=== PATIENT | female | born 1980 | race Caucasian/White ===

== ENCOUNTER 2025-06-05 13:15 | Outpatient (AMB) | payer MEDICARE, MEDICAID, SELFPAY ==
--- OUTSIDE RECORDS SUMMARY | 2025-06-04 14:30 | XMS_ITS | Encounter Summary ---
Author Organization [facility] Address [address] [facility] [address] [place] [address] Phone Care Team Providers Care Interior Horticulturist Name Role Phone Nancy Mina MD Unavailable [phone] Anil Polanco MD Unavailable [phone] Andrea Bradley MD Unavailable [phone] Maximo Frye MD Unavailable Catherine Baxter Primary Care Provider [phone] Reason for Visit * Treatment and Therapy Plan (Routine) - Authorized Specialty Diagnoses / Procedures Referred By Sylvia abrams Referred To Contact Infusion Therapy Diagnoses IV HYDRATRATION Procedures IV HYDRATION Catherine Baxter [address] [facility], [address] [place] [address] Phone: tel: fax: mailto:lizandro [facility] [address] [place] [address] Phone: tel: fax: Referral ID Status Reason Start Date Expiration Date V isits Requested Visits Authorized [id number] Authorized 01/01/2025 01/01/2039 99 99 Encounter Details Date Type Department Care Team (Late st Contact Info) Description 06/04/2025 2:30 PM EDT Infusion [facility] [address] [place] [address] Catherine Baxter [address] [facility], [address] [place] [address] [email or web address] Major-Danlos syndrome (Primary Dx) Social History Tobacco Use Types Packs/Day Years Used Date Smoking Tobacco: Never Smokeless Tobacco: Never Alcohol Use Standard Drinks/Week Comments No 0 (1 standard drink = 0.6 oz pur e alcohol) Child or Family Care Answer Date Record ed Do you have problems with on e of the following making it difficult for you to work, study, or receive health care? No 07/05/2024 Education Answer Date Recorded Are you interested in help w ith more adult education (for example, completing high school, GED, job training, learning the Amharic language, technical skills, or developing parenting skills)? No 07/05/2024 Are you concerned about learning? Not on file 07/05/2024 No 07/05/2024 Yes 07/05/2024 Food Answer Date Recorded Within the past 6 months we worried whether our food would run out before we got money to buy more. Never True 07/05/2024 Within the past 6 months the food we bought just didn't last and we didn't have enough money to get more. Never True Residential Stability Answer Date Recor ded What is your housing situation today? I have constantine sing 07/05/2024 How many times have you move d in the past 12 months? Zero (I did not move) 07/05/2024 Paying for Meds Answer Date Recorded Do you have trouble paying for medicines? No 07/05/2024 Paying Utility Bills Answer Date Record ed Do you have trouble paying your heating or elect ricity bill? No 07/05/2024 Transportation Answer Date Recorded Has the lack of transportati on kept you from medical appointments or from getting medications? No 07/05/2024 Unemployment Answer Date Recorded Are you currently unemployed or working on a part-time or temporary basis, and looking for work? No 07/05/2024 Digital Access Answer Date Recorded No 07/05/2024 Yes 07/05/2024 Do you have reliable internet access at home? Ye sherwin 07/05/2024 Do you have a device (e.g., phone, tablet, computer) with a working camera? Yes 07/05/2024 Intimate Partner Violence Answer Date R ecorded Are you denied basic needs s uch as food, clothing, or medical care? No 03/20/2025 In the past 12 months have y ou been in a relationship with a person who hurts, threatens, or tries to control you? No 03/20/2025 Are you denied basic needs s uch as food, clothing, or medical care? No 03/20/2025 In the past 12 months have y ou been in a relationship with a person who hurts, threatens, or tries to control you? No 03/20/2025 Comments No Sex and Gender Information Value Date Recorded Sex Assigned at Female 08/22/2019 10:05 AM EDT Legal Sex Female 3:35 PM EDT Gender Identity Female 08/22/2019 10:05 AM EDT Sexual Orientation Straight 01/30/2021 5: 26 PM EDT documented as of this encounter Last Filed Vital Signs Vital Sign Reading Time Taken Comments Blood Pressure 131/83 06/04/2025 3:30 PM EDT Pulse 89 06/04/2025 3:30 PM EDT Temperature 36.6 C (97.8 F) 06/04/2025 3:30 PM EDT Respiratory Rate 20 06/04/2025 3:30 PM EDT Oxygen Saturation 97% 06/04/2025 3:30 PM EDT Inhaled Oxygen Concentration - - Weight - - Height - - Body Mass Index - - documented in this encounter Progress Notes * Katheryn Arnett RN - 06/04/2025 2:30 PM EDT Patient here for day one of this week's IV hydration on MWF schedule. Patient reports increased back pain and requested bed which is available today. Attempted to access port with patient in high alford's position. Patient flinched significantly with needle contact and gripper needle popped out and became unseated. Second attempt also unsuccessful due to most likely insufficient securing of port during access and when patient flinched needle hit metal and made a noise so immediately removed. A second nurse accessed patient in supine position without any difficulty. Immediate blood return noted. Patient tolerated LR one liter of one hour without any further incidence. Patient's teenage son and WEBBING INSPECTOR present for today's visit. documented in this encounter Plan of Treatment Upcoming Encounters Date Type Department Care Team (Late st Contact Info) Description 06/06/2025 2:30 PM EDT Infusion [facility] [address] [place] [address] [place], [address], [address] [place] [address] [email or web address] 06/08/2025 2:30 PM EDT Infusion [facility] [address] [address] [place], [address], [address] [place] [address] [email or web address] 06/11/2025 2:30 PM EDT Infusion [facility] [address] [address] [place], [address], [address] [place] [address] [email or web address] 06/13/2025 2:30 PM EDT Infusion [facility] [address] [address] [place], [address], [address] [place] [address] [email or web address] 06/15/2025 8:45 AM EDT Office Visit [facility] Orthopedics & Sports Medicine [address] [place] [address] Betty Saleh MD [address] [place] [address] Orthopedics & Sports Medicine, [facility] [place] [address] [email or web address] 06/15/2025 10:30 AM EDT Office Visit [facility] Neurology [address] [place] [address] Christian De La Rosa MD [address] [place] [address], [address] [place] [address] 06/15/2025 2:30 PM EDT Infusion [facility] [address] [place] [address] Christian De La Rosa MD [address] [place] [address] 06/18/2025 2:30 PM EDT Infusion [facility] [address] [place] [address] [place], [address], [address] [place] [address] [email or web address] 06/20/2025 2:30 PM EDT Infusion [facility] [address] [place] [address] [place], [address], [address] [address] [email or web address] 06/22/2025 2:30 PM EDT Infusion [facility] [address] [place] [address] [place], [address], [address] [place] [address] [email or web address] 06/25/2025 2:30 PM EDT Infusion [facility] [address] [place] [address] [place], [address], [address] [place] [address] [email or web address] 06/27/2025 2:30 PM EDT Infusion [facility] [address] [place] [address] [place], [address], [address] [place] [address] [email or web address] 06/29/2025 2:30 PM EDT Infusion [facility] [address] [place] [address] [place], [address], [address] [place] [address] [email or web address] 07/03/2025 2:30 PM EDT Infusion [facility] [address] [place] [address] [place], [address], [address] [place] [address] [email or web address] 07/04/2025 2:30 PM EDT Infusion [facility] [address] [place] [address] [place], [address], [address] [place] [address] [email or web address] 07/06/2025 2:30 PM EDT Infusion [facility] [address] [place] [address] [place], [address], [address] [place] [address] [email or web address] 07/09/2025 2:30 PM EDT Infusion [facility] [address] [place] [address] [place], [address], [address] [place] [address] [email or web address] 07/11/2025 2:30 PM EDT Infusion [facility] [address] [place] [address] [place], [address], [address] [place] [address] [email or web address] 07/13/2025 2:30 PM EDT Infusion [facility] [address] [place] [address] [place], [address], [address] [place] [address] [email or web address] 07/16/2025 7:30 AM EDT Infusion [facility] [address] [address] [place], [address], [address] [place] [address] [email or web address] 07/16/2025 11:45 AM EDT Office Visit [facility] [address] [place] [address], [address] [place] [address] Shyanne Fletcher, [address] [phone] [email or web address] 07/18/2025 2:30 PM EDT Infusion [facility] [address] [address] [place], [address], [address] [place] [address] [email or web address] 07/20/2025 2:30 PM EDT Infusion [facility] [address] [place] [address] [place], [address], [address] [place] [address] [email or web address] 07/23/2025 2:30 PM EDT Infusion [facility] [address] [place] [address] [place], [address], [address] [place] [address] [email or web address] 07/25/2025 7:30 AM EDT Infusion [facility] [address] [place] [address] [place], [address], [address] [place] [address] [email or web address] 07/25/2025 9:15 AM EDT Appointment [address] [address] [place], [address], [address] [place] [address] [email or web address] 07/27/2025 2:30 PM EDT Infusion [facility] [address] [place] [address] [place], [address], [address] [place] [address] [email or web address] 07/30/2025 2:30 PM EDT Infusion [facility] [address] [place] [address] [place], [address], [address] [place] [address] [email or web address] 08/01/2025 2:30 PM EDT Infusion [facility] [address] [place] [address] [place], [address], [address] [place] [address] [email or web address] 08/03/2025 2:30 PM EDT Infusion [facility] [address] [place] [address] [place], [address], [address] [place] [address] [email or web address] 08/06/2025 2:30 PM EDT Infusion [facility] [address] [place] [address] [place], [address], [address] [place] [address] [email or web address] 08/08/2025 11:00 AM EDT Infusion [facility] [address] [place] [address] Donte Chopra MD [address] [place] [address], [address] [place] [address] 08/08/2025 2:00 PM EDT Office Visit [facility] [address] [place] [address] Dr 3rd Floor, [address] [place] [address] Donte Chopra MD [address] [place] [address], [address] [place] [address] 08/10/2025 2:30 PM EDT Infusion [facility] [address] [place] [address] [place], [address], [address] [place] [address] [email or web address] 08/14/2025 2:30 PM EDT Infusion [facility] [address] [place] [address] [place], [address], [address] [place] [address] [email or web address] 08/15/2025 2:30 PM EDT Infusion [facility] [address] [place] [address] [place], [address], [address] [place] [address] [email or web address] 08/17/2025 2:30 PM EDT Infusion [facility] [address] [place] [address] [place], [address], [address] [place] [address] [email or web address] 08/20/2025 2:30 PM EDT Infusion [facility] [address] [place] [address] [place], [address], [address] [place] [address] [email or web address] 08/22/2025 2:30 PM EDT Infusion [facility] [address] [place] [address] [place], [address], [address] [place] [address] [email or web address] 08/24/2025 2:30 PM EDT Infusion [facility] [address] [place] [address] Catherine Baxter [address] [facility], [address] [place] [address] [email or web address] 09/25/2025 2:00 PM EST Office Visit [address] [address] Catherine Baxter [address] [facility] [place] [address] [email or web address] 11/07/2025 9:00 AM EST Office Visit [facility] Cardiology [facility] [address] [place] [address], [address] [place] [phone] Diane Melgar MD [address] [place] [address] [email or web address] documented as of this encounter Visit Diagnoses Diagnosis Major-Danlos syndrome- Primary documented in this encounter Administered Medications Inactive Administered Medications - up to 3 most recent administrations Medication Order MAR Action Action Date Dose Rate Site lactated ringers IV Bolus 1,000 mL 1,000 mL, Intravenous, Administer over 30 Minutes, Continuous, Starting on Wed06/04/25 at 1600Indications:Major-Danl os syndrome New Bag 06/04/2025 3:33 PM EDT 1,000 mL 1000 mL/hr documented in this encounter Additional Health Concerns Assessment Noted Time PHQ-9 Depression Total Score: 7 05/10/20 24 11:39 AM EDT PHQ-2 Depression Total Score: 2 09/21/20 24 1:48 PM EST documented as of this encounter Care Teams Interior Horticulturist Relationship Specialty Start Date End Date Catherine Baxter [address] [place] [address], [address] [place] [address] PCP - General Family Medicine 07/05/24 Nancy Mina MD [address] [facility] [address] [place] [address] Neurosurgery 04/12/19 Anil Polanco MD [address] [place] [address], [address] [place] [address] Neurology 04/12/19 Andrea Bradley MD [address] [place] [address], [address] [place] [address] Endocrinology 02/03/24 Maximo Frye MD [address] [place] [address] Gastroenterology 02/03/24 documented as of this encounter Additional Source Comments The information contained in this document represents components of the legal health record. It is not the complete legal health record.[facility]
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
[2025-06-05 13:42] VITALS: BP 184/83; PULSE 100; O2SAT 96; BMI 33.2
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
== END 2025-06-05 14:26 | disposition home or self-care (01) ==
LOC: HO.PMC 13:16
PROVIDERS: PCP Student in an Organized Health Care Education/Training Program; Visit Provider Nurse Practitioner Family
DX: G89.4 Chronic pain syndrome (principal); M96.1 Postlaminectomy syndrome, not elsewhere classified; Z87.820 Personal history of traumatic brain injury; M54.2 Cervicalgia; M54.9 Dorsalgia, unspecified; G89.29 Other chronic pain; Z96.89 Presence of other specified functional implants
CPT/HCPCS: 99204

== ENCOUNTER → 2025-06-05 13:15 | Outpatient (BNVA) | payer MEDICARE, MEDICAID, SELFPAY | PROVIDERS: PCP Student in an Organized Health Care Education/Training Program; Visit Provider Nurse Practitioner Family | DX: G89.4 Chronic pain syndrome (principal); M96.1 Postlaminectomy syndrome, not elsewhere classified; Z87.820 Personal history of traumatic brain injury; M54.2 Cervicalgia; M54.9 Dorsalgia, unspecified; Z96.89 Presence of other specified functional implants | CPT/HCPCS: 99202 ==

== ENCOUNTER 2025-06-21 07:50 | Outpatient (REF) | payer MEDICARE, MEDICAID, SELFPAY ==
--- OUTSIDE RECORDS SUMMARY | 2025-06-21 07:57 | XMS_ITS | Clinical Summary ---
Author Organization [facility] Address [address] [place] [phone] Phone Care Team Providers Care Manager Army Name Role Phone ZeeshanjoséCatherine Horan Primary Care Provider Allergies Active Allergy Reactions Criticality Noted Date Comments Adhesive Tape Rash Low 02/22/2018 Paper tape and tegaderm ok [place] Oil 11/07/2021 Amoxicillin Other (see comments) 04/17/2019 [...] Last Assessment & Plan: She presented to [facility] with complaints of chest pain. It [...] Visit [facility] [place] [place] - [address] [place] [address] Fabricio Montemayor MD Gitelman syndrome (Primary Dx); Hypophosphatemia; Hypomagnesemia; Hypertension from Last 3 Months Immunizations Immunization Administration [...] Visit [facility] [address] [place] [address] Fabricio Montemayor MD [address] [place] [address] Health Maintenance Due Date Last Done Comments [...] 5 Insurance Medicare Medicaid [place] Care Teams Manager Army Relationship Specialty Start Date End Date Seda-Catherine Go [address] [place] [address], [address] [place] [address] PCP - General Family Medicine 07/11/24
--- OUTSIDE RECORDS SUMMARY | 2025-06-21 07:57 | XMS_ITS | Encounter Summary ---
Author Organization [facility] Address [address] [facility] [address] [place] [address] Phone Care Team Providers Care Alto Singer Name Role Phone Nancy Mina MD Unavailable [phone] Anil Polanco MD Unavailable [phone] Andrea Bradley MD Unavailable [phone] Maximo Frye MD Unavailable Catherine Baxter Primary Care Provider [phone] Reason for Visit * Reason Onset Date Comments Triage 05/30/2025 Sever Back pain Encounter Details Date Type Department Care Team (Late st Contact Info) Description 05/30/[address] [facility] [address] [place] [phone] Catherine Baxter [address] [facility], [address] [place] [address] [email or web address] Triage (Sever Back pain ) Social History Tobacco Use Types Packs/Day Years [...] high school, GED, job training, learning the German language, technical skills, or developing parenting skills)? [...] have reliable internet access at home? Ye s 07/05/2024 Do you have a device (e.g., [...] PM EDT documented as of this encounter Progress Notes * Daxa Wood RN - 05/31/2025 1:04 PM EDT Images from the original note were not included. Catherine Baxter [facility] Rn39 minutes ago (12:23 PM) JF Increase to 10mg TID. She is seeing pain management soon. I have some alternatives in my pocket as well if they don't have anything new to offer. Notified Celeste of instructions per PCP to increase oxycodone to 10 mg TID. States she is already taking 10 mg twice a day and 5 mg once a day. She will try the increase. Her appointment with pain clinic is next Wednesday. She will not have enough oxycodone to get her through until she sees them and asks to refill the oxycodone. [facility] checked: Pended new prescription for oxycodone. * Daxa Wood RN - 05/31/2025 11:58 AM EDT Spoke with patient. Apologized call from yesterday was routed to PCP who was not in yesterday. Pain is the same and not being releved with the oxycodone, It is across the middle of her back/bra line and radiates downward to the lower back. Right now the pain is a 9/10. Sent to PCP to review * Yoko Sanchez RN - 05/30/2025 4:24 PM EDT Celeste states she is currently at the infusion center and her back pain is severe. She 2 oxycodone at 1 p.m. and her pain level is still 9.5/10 and she is wondering what else can be done. * Sara Carcamo - 05/30/2025 4:19 PM EDT [facility] Top Smart Phrases: Red Yellow Green Guidelines Select Red, Yellow, Green Triage Intake *Route to appropriate staff member/pool according to practice guidelines* Red Call Intake Call Back Number: (if not patient, name/relationship and if patient is with caller) [phone] Red Symptom(s): Triage (Sever Back pain ) When did these symptoms start? On Going Have you ever experienced these symptoms before? Additional information: Pt has been at a 10 took Oxy at 1PM and still at a 9.5 (Call was transferred to ) Transfer LIVE call to RN for prompt triage Reason for Call = TRIAGE Comment = RED + symptom Route TE directly to the RN receiving the warm transfer, NOT the nursing pool documented in this encounter Plan of Treatment Upcoming Encounters Date Type Department Care Team (Latest Contact Info) Description 06/22/2025 2:30 PM EDT Infusion [facility] Medical Infusion Center [address] [place] [address] [address], [address] [address] [email or web address] 06/25/2025 2:30 PM EDT Infusion [facility] Medical Infusion Center [address] [place] [address] Catherine Baxter [address] [place] [address], [address] [place] [address] [email or web address] 06/27/2025 2:30 PM EDT Infusion [facility] Medical Infusion Center [address] [place] [address] [place], [address], [address] [place] [address] [email or web address] 06/29/2025 2:30 PM EDT Infusion [facility] Medical Infusion Center [address] [place] [address] [place], [address], [address] [place] [address] [email or web address] 07/03/2025 2:30 PM EDT Infusion [facility] Medical Infusion Center [address] [place] [address] [place], [address], [address] [place] [address] [email or web address] 07/04/2025 2:30 PM EDT Infusion [facility] Medical Infusion Center [address] [place] [address] [place], [address], [address] [place] [address] [email or web address] 07/06/2025 2:30 PM EDT Infusion [facility] Medical Infusion Center [address] [place] [address] [place], [address], [address] [place] [address] [email or web address] 07/09/2025 2:30 PM EDT Infusion [facility] Medical Infusion Center [address] [place] [address] [place], [address], [address] [place] [address] [email or web address] 07/11/2025 2:30 PM EDT Infusion [facility] Medical Infusion Center [address] [place] [address] [place], [address], [address] [place] [address] [email or web address] 07/13/2025 2:30 PM EDT Infusion [facility] Medical Infusion Center [address] [place] [address] [place], [address], [address] [place] [address] [email or web address] 07/16/2025 7:30 AM EDT Infusion [facility] Infusion [address] [address] [place], [address], [address] [place] [address] [email or web address] 07/16/2025 11:45 AM EDT Office [place] [facility] [address] [place] [address], 5th [place] [address] Shyanne Fletcher, [address] [phone] [email or web address] 07/18/2025 2:30 PM EDT Infusion [facility] Medical Infusion Center [address] [place] [address] [place], [address], [address] [place] [address] [email or web address] 07/20/2025 2:30 PM EDT Infusion [facility] Infusion [address] [address] [place], [address], [address] [place] [address] [email or web address] 07/23/2025 2:30 PM EDT Infusion [facility] Medical Infusion Center [address] [place] [address] [place], Catherine[address], [address] [place] [address] [email or web address] 07/25/2025 7:30 AM EDT Infusion [facility] Medical Infusion Center [address] [place] [address] [place], [address], [address] [place] [address] [email or web address] 07/25/2025 9:15 AM EDT Appointment [address] [address] [place], [address], [address] [place] [address] [email or web address] 07/27/2025 2:30 PM EDT Infusion [facility] Medical Infusion Center [address] [place] [address] [place], [address], [address] [place] [address] [email or web address] 07/30/2025 2:30 PM EDT Infusion [facility] Medical Infusion Center [address] [place] [address] [place], [address], [address] [place] [address] [email or web address] 08/01/2025 2:30 PM EDT Infusion [facility] Medical Infusion Center [address] [place] [address] [place], Catherine[address], [address] [place] [address] [email or web address] 08/03/2025 2:30 PM EDT Infusion [facility] Medical Infusion Center [address] [place] [address] [place], Catherine[address], [address] [place] [address] [email or web address] 08/06/2025 2:30 PM EDT Infusion [facility] Infusion Center [address] [place] [address] [place], [address], [address] [place] [address] [email or web address] 08/08/2025 11:00 AM EDT Infusion [facility]fusion Center [address] [place] [address] Donte Chopra MD [address] [place] [address], [address] [address] 08/08/2025 2:00 PM EDT Office Visit [facility] [address] [place] [address] 3rd Floor, [address] [place] [address] Donte Chopra MD [address] [place] [address], [address] [address] 08/10/2025 2:30 PM EDT Infusion [facility] Infusion Center [address] [place] [address] [place], Catherine [address] [place] [address], [address] [place] [address] [email or web address] 08/14/2025 2:30 PM EDT Infusion [facility] Medical Infusion Center [address] [place] [address] [place], [address], [address] [place] [address] [email or web address] 08/15/2025 2:30 PM EDT Infusion [facility] Medical Infusion Center [address] [place] [address] [place], [address], [address] [place] [address] [email or web address] 08/17/2025 2:30 PM EDT Infusion [facility] Medical Infusion Center [address] [place] [address] [place], [address], [address] [place] [address] [email or web address] 08/20/2025 2:30 PM EDT Infusion [facility] Medical Infusion Center [address] [place] [address] [place], [address], [address] [place] [address] [email or web address] 08/22/2025 2:30 PM EDT Infusion [facility] Medical Infusion Center [address] [place] [address] [place], [address], [address] [place] [address] [email or web address] 08/24/2025 2:30 PM EDT Infusion [facility] Medical Infusion Center [address] [place] [address] [place], [address], [address] [place] [address] [email or web address] 09/25/2025 2:00 PM EST Office Visit [address] [place] [address] Catherine Baxter [address] [facility], [address] [place] [address] [email or web address] 10/15/2025 9:45 AM EST Office Visit [facility] [address] [place] [address] Betty Saleh MD [address] [place] [address] Orthopedics & Sports Medicine, [facility] [place] [address] [email or web address] 11/07/2025 9:00 AM EST Office [place] [facility] [place] [address] [place] [address], [address] [place] [address] Diane Melgar MD [address] [place] [address] [email or web address] 12/24/2025 11:00 AM EST Telemedicine - audio only [facility] Neurology [address] [place] [address] [place] [address] Christian De La Rosa MD [address] [place] [address], 2[address] [place] [address] [email or web address] documented as of this encounter Visit Diagnoses Diagnosis Chronic pain disorder- Primary Chronic pain syndrome documented in this encounter Additional Health Concerns Assessment Noted Time PHQ-9 Depression Total Score: 7 05/10/20 24 11:39 AM EDT PHQ-2 Depression Total Score: 2 09/21/20 24 1:48 PM EST documented as of this encounter Care Teams Alto Singer Relationship Specialty Start Date End Date Catherine Baxter [address] [facility], [address] [place] [address] PCP - General Family Medicine 07/05/24 Nancy Mina MD [address] [facility] [address] [place] [address] Neurosurgery 04/12/19 Anil Polanco MD [address] [place] [address], [address] [place] [address] Neurology 04/12/19 Andrea Bradley MD [address] [place] [address], [address] [place] [address] Endocrinology 02/03/24 Maximo Frye MD [address] [address] Gastroenterology 02/03/24 documented as of this encounter Additional Source Comments The information contained in this document represents components of the legal health record. It is not the complete legal health record.[facility]
== END 2025-06-21 07:51 | disposition home or self-care (01) ==
LOC: CF 07:50
DX: Z13.89 Encounter for screening for other disorder (principal)